=== PATIENT | female | born 1965 | race Caucasian/White ===

== ENCOUNTER 2021-10-07 01:45 | Observation (INO) | payer OTHER ==
[2021-10-07] VITALS (23 sets, daily range): BP systolic 116–190; BP diastolic 61–94
[~2021-10-07] VITALS: Ht 167.7 cm; Wt 116.9 kg
[2021-10-07] MEDS ORDERED: NITROGLYCERIN 2% OINT 1 GM UNIT DOSE PACKET TOP STA (02:02)
--- NOTE | 2021-10-07 02:13 | ED Chest Pain ---
General Stated Complaint: CP,JAW PAIN,LEFT ARM PAIN Source: patient History of Present Illness Date Seen by Provider: October 07, 2021 Time Seen by Provider: 01:52 Initial Comments PT ARRIVES VIA POV FROM HOME IN [place] C/O CHEST PAIN SINCE 99--WOKE HER FROM SLEEP PAIN IS IN CENTER OF CHEST AND RADIATES TO LEFT SHOULDER AND DOWN LEFT ARM, AND LEFT ARM FEELS A LITTLE TINGLY SYMPTOMS WORSE WITH EXERTION, BETTER AT REST STATES PAIN WAS 8-9/10 AT WORST, RATES PAIN 3-4/10 NOW C/O SHORTNESS OF BREATH NO SWEATS NO PALPITATIONS NO DIZZINESS OR SYNCOPE NO NAUSEA/VOMITING/DIARRHEA OR ABDOMINAL PAIN NO SWELLING IN LEGS /FEET OR PAIN IN CALVES STATES "I WAS FREAKING OUT" STATES FOR THE LAST 3-4 WEEKS SHE HAS BEEN GETTING VERY SHORT OF BREATH WITH ANY EXERTION AND HER JAWS HURT/ACHE WITH ANY EXERTION DENIES HISTORY OF SIMILAR OR ANY CARDIAC PROBLEMS NO FEVER OR COUGH OR RECENT ILLNESS PT IS INSULIN DEPENDENT DIABETIC, HAS HTN, HYPERLIPIDEMIA AND IS OBESE DENIES ANY MISSED DOSES OF MEDICATIONS PT ALSO STATES SHE HAS HAD COLON CANCER IN 2006 AND BREAST CANCER IN 2018. PT STATES SHE JUST MOVED HERE IN [place] FROM [place]--LIVING IN [place], WHILE HOUSE IS [place]ING [place]. HAS NOT ESTABLISHED WITH ANY LOCAL DR. HERE PT HAS NOT HAD COVID, FLU OR PNEUMONIA VACCINES STATES "I DON'T BELIEVE IN THOSE TESTS ( REFERRING TO COVID TESTS) --THOSE TESTS HAVE "NANOBOTS" IN THEM TOO" "THOSE TESTS HAVE KILLED HUNDREDS OF PEOPLE AND THOSE VACCINES HAVE KILLED THOUSANDS OF PEOPLE" Allergies and Home Medications Allergies Uncoded Allergies: MYCINS (Adverse Reaction, Unknown, 10/07/21) Patient Home Medication List Home Medication List Reviewed: Yes Aspirin (Aspirin EC) 81 Mg Tablet., 81 MG PO DAILY Prescribed by: ANITRA MENDOZA on 10/08/21 1002 Fenofibrate,Micronized (Fenofibrate) 134 Mg Capsule, 134 MG PO HS Prescribed by: ANITRA MENDOZA on 10/08/21 1002 Hydrochlorothiazide (Hydrochlorothiazide) 25 Mg Tablet, 25 MG PO HS, (Reported) Entered as Reported by: ENE LICONA on 10/07/21 0811 Last Action: Continued Insulin Glargine,Hum.rec.anlog (Lantus Solostar) 100 Unit/Ml (3 Ml) Insuln.pen, 56 UNITS SQ HS Prescribed by: ANITRA MENDOZA on 10/08/211001 Insulin Lispro (Humalog Kwikpen) 100 Unit/Ml Insuln.pen, 0 SQ TID Prescribed by: ANITRA MENDOZA on 10/08/211001 Isosorbide Mononitrate (Isosorbide Mononitrate ER) 30 Mg Tab.er.24h, 30 MG PO DAILY Prescribed by: ANTIRA MENDOZA on 10/08/211001 Lisinopril (Lisinopril) 20 Mg Tablet, 20 MG PO HS, (Reported) Entered as Reported by: ENE LICONA on 10/07/21 0811 Last Action: Continued Pantoprazole Sodium (Pantoprazole Sodium) 40 Mg Tablet.dr, 40 MG PO DAILY Prescribed by: ANITRA MENDOZA on 10/08/211001 Ticagrelor (Brilinta) 90 Mg Tablet, 90 MG PO BID Prescribed by: ANITRA MENDOZA on 10/08/211001 Review of Systems Review of Systems Constitutional: no symptoms reported EENTM: See HPI, Other (JAW PAIN ) Respiratory: See HPI, Shortness of Air, SOA With Exertion, SOA at Rest Cardiovascular: See HPI, Chest Pain; Denies Edema, Denies Lightheadedness, Denies Palpitations, Denies Syncope Gastrointestinal: No Symptoms Reported Genitourinary: No Symptoms Reported Musculoskeletal: see HPI Skin: no symptoms reported Psychiatric/Neurological: See HPI Endocrine: No Symptoms Reported Hematologic/Lymphatic: No Symptoms Reported Past Jrtzijc-Jpvyru-Gjngzs Hx Patient Social History Tobacco Use?: No Substance use?: No Alcohol Use?: No Past Medical History Surgeries: Yes Abdominal, Bowel Surgery, Breast, Gallbladder, Hysterectomy, Oophorectomy Respiratory: No Cardiac: Yes High Cholesterol, Hypertension Neurological: No : No RESOLUTE PROFESSIONAL History: Hysterectomy Genitourinary: No Gastrointestinal: Yes (COLON CANCER-S/P RESECTION; S/P CHOLECYSTECTOMY 2003) Gall Bladder Disease Musculoskeletal: No Endocrine: Yes Diabetes, Insulin dep HEENT: No Cancer: Yes Breast, Colon Did You Recieve Any Treatments: Yes What Type of Treatment Did You: Chemotherapy, Surgical Intervention COLON CANCER DX 2005--S/P COLON RESECTION AND 6 MONTHS OF CHEMO, NO RADIATION BREAST CANCER DX 2017--S/P BILATERAL MASTECTOMY. NO CHEMO OR RADIATION. Psychosocial: Yes Anxiety Integumentary: No Blood Disorders: No Physical Exam Vital Signs Vital Signs - First Documented 10/07/21 01:50 Temp 36.4 Pulse 80 Resp 20 B/P (MAP) 199/104 (135) Pulse Ox 97 Capillary Refill : Height, Weight, BMI Height: '" Weight: lbs. oz. kg; BMI Method: General Appearance: No Apparent Distress, WD/WN, Anxious (CRYING), Obese Neck: Full Range of Motion, Normal Inspection, Non Tender, Supple Respiratory: Chest Non Tender, Lungs Clear, Normal Breath Sounds, No Accessory Muscle Use, No Respiratory Distress Cardiovascular: Regular Rate, Rhythm, No Edema, No JVD, No Murmur, Normal Peripheral Pulses Gastrointestinal: Normal Bowel Sounds, No Organomegaly, Non Tender, Soft Extremity: Normal Capillary Refill, Normal Inspection, Normal Range of Motion, Non Tender, No Calf Tenderness, No Pedal Edema Neurologic/Psychiatric: Alert, Oriented x3, No Motor/Sensory Deficits, 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 as Tested Skin: Normal Color, Warm/Dry; No Rash Progress/Results/Core Measures Results/Orders Lab Results Laboratory Tests Test 10/07/21 02:00 10/07/21 02:07 10/07/21 02:20 Range/Units Beta-Hydroxybutyrate (Chem panel) 0.19 0.00-0.27 MMOL/L Influenza Type A (RT-PCR) Not Detected Not Detecte Influenza Type B (RT-PCR) Not Detected Not Detecte SARS-CoV-2 RNA (RT-PCR) Not Detected Not Detecte White Blood Count 8.7 4.3-11.0 10^3/uL Red Blood Count 5.01 3.80-5.11 10^6/uL Hemoglobin 14.9 11.5-16.0 g/dL Hematocrit 42 35-52 % Mean Corpuscular Volume 85 80-99 fL Mean Corpuscular Hemoglobin 30 25-34 pg Mean Corpuscular Hemoglobin Concent 35 32-36 g/dL Red Cell Distribution Width 13.7 10.0-14.5 % Platelet Count 269 130-400 10^3/uL Mean Platelet Volume 10.4 9.0-12.2 fL Immature Granulocyte % (Auto) 1 % Neutrophils (%) (Auto) 49 42-75 % Lymphocytes (%) (Auto) 40 12-44 % Monocytes (%) (Auto) 7 0-12 % Eosinophils (%) (Auto) 3 0-10 % Basophils (%) (Auto) 1 0-10 % Neutrophils # (Auto) 4.2 1.8-7.8 10^3/uL Lymphocytes # (Auto) 3.5 1.0-4.0 10^3/uL Monocytes # (Auto) 0.6 0.0-1.0 10^3/uL Eosinophils # (Auto) 0.2 0.0-0.3 10^3/uL Basophils # (Auto) 0.0 0.0-0.1 10^3/uL Immature Granulocyte # (Auto) 0.0 0.0-0.1 10^3/uL Prothrombin Time 11.8 L 12.2-14.7 SEC INR Comment 0.8 0.8-1.4 Activated Partial Thromboplast Time 27 24-35 SEC D-Dimer 0.33 0.00-0.49 UG/ML Sodium Level 139 135-145 MMOL/L Potassium Level 3.8 3.6-5.0 MMOL/L Chloride Level 101 98-107 MMOL/L Carbon Dioxide Level 21 21-32 MMOL/L Anion Gap 17 H 5-14 MMOL/L Blood Urea Nitrogen 15 7-18 MG/DL Creatinine 0.86 0.60-1.30 MG/DL Estimat Glomerular Filtration Rate 78 BUN/Creatinine Ratio 17 Glucose Level 261 H 70-105 MG/DL Calcium Level 10.1 8.5-10.1 MG/DL Corrected Calcium 9.9 8.5-10.1 MG/DL Magnesium Level 1.7 1.6-2.4 MG/DL Total Bilirubin 0.2 0.1-1.0 MG/DL Aspartate Amino Transf (AST/SGOT) 26 5-34 U/L Alanine Aminotransferase (ALT/SGPT) 40 0-55 U/L Alkaline Phosphatase 100 40-136 U/L Total Creatine Kinase 71 29-168 U/L Creatine Kinase MB 1.7 <6.6 NG/ML Myoglobin 29.5 10.0-92.0 NG/ML Troponin I < 0.028 <0.028 NG/ML B-Type Natriuretic Peptide 10.3 <100.0 PG/ML Total Protein 7.4 6.4-8.2 GM/DL Albumin 4.2 3.2-4.5 GM/DL Amylase Level 41 25-125 U/L Lipase 33 8-78 U/L Urine Opiates Screen NEGATIVE NEGATIVE Urine Oxycodone Screen NEGATIVE NEGATIVE Urine Methadone Screen NEGATIVE NEGATIVE Urine Propoxyphene Screen NEGATIVE NEGATIVE Urine Barbiturates Screen NEGATIVE NEGATIVE Ur Tricyclic Antidepressants Screen NEGATIVE NEGATIVE Urine Phencyclidine Screen NEGATIVE NEGATIVE Urine Amphetamines Screen NEGATIVE NEGATIVE Urine Methamphetamines Screen NEGATIVE NEGATIVE Urine Benzodiazepines Screen NEGATIVE NEGATIVE Urine Cocaine Screen NEGATIVE NEGATIVE Urine Cannabinoids Screen NEGATIVE NEGATIVE My Orders Orders - ZARIA KING DO Cbc With Automated Diff (10/07/21 01:52) Magnesium (10/07/21 01:52) Chest 1 View, Ap/Pa Only (10/07/21 01:52) Ekg Tracing (10/07/21 01:52) Comprehensive Metabolic Panel (10/07/21 01:52) Myoglobin Serum (10/07/21 01:52) Protime With Inr (10/07/21 01:52) Partial Thromboplastin Time (10/07/21 01:52) O2 (10/07/21 01:52) Monitor-Rhythm Ecg Trace Only (10/07/21 01:52) Ed Iv/Invasive Line Start (10/07/21 01:52) Creatine Kinase (10/07/21 01:52) Creatine Kinase Mb (10/07/21 01:52) Lipase (10/07/21 01:52) Amylase (10/07/21 01:52) Bnp Yessenia (10/07/21 01:52) Fibrin Degradation Products (10/07/21 01:52) Troponin I [place] (10/07/21 01:52) Ekg Tracing (10/07/21 01:54) Drug Screen Stat (Urine) (10/07/21 02:02) Nitroglycerin Ointment (Nitrobid Ointme (10/07/21 02:02) Aspirin Chewable Tablet (Baby Aspirin Ch (10/07/21 02:15) Covid 19 Inhouse Test (10/07/21 02:18) Influenza A And B By Pcr (10/07/21 02:18) Isolation Central Supply Req (10/07/21 02:18) Beta Hydroxybutyrate (10/07/21 02:59) Hemoglobin A1c (10/07/21 02:59) Hydralazine Injection (Apresoline Inject (10/07/21 03:15) Medications Given in ED Vital Signs/I&O 10/07/21 01:50 Temp 36.4 Pulse 80 Resp 20 B/P (MAP) 199/104 (135) Pulse Ox 97 Progress Progress Note : Progress Note INITIAL BP'S 200'S/100'S GIVEN ASPIRIN AND NITROPASTE BP DOWN WITH NITROPASTE AND CHEST PAIN EASED. UNEVENTFUL ER STAY Initial ECG Impression Date: October 07, 2021 Initial ECG Impression Time: 01:57 Initial ECG Rate: 78 Initial ECG Rhythm: Normal Sinus Initial ECG Impression: Normal Initial ECG Comparisson: No Previous ECG Available Diagnostic Imaging Comments CXR--NO ACUTE PROCESS, PENDING RADIOLOGIST REVIEW Reviewed: Reviewed by Me Departure Communication (Admissions) 0306--SPOKE WITH DR. MENDOZA, HOSPITALIST, ACCEPTS PT FOR ADMIT. WILL CONSULT CARDIOLOGY IN AM Impression Primary Impression: Chest pain Additional Impressions: Uncontrolled hypertension Diabetes mellitus, insulin dependent (IDDM), uncontrolled Disposition: ADMITTED INPATIENT Condition: Improved Admissions Decision to Admit Reason: Admit from ER (General) Decision to Admit/Date: October 07, 2021 Time/Decision to Admit Time: 03:10 Departure-Patient Inst. Referrals: NO,LOCAL PHYSICIAN (PCP/Family) Primary Care Physician Scripts Pantoprazole Sodium (Pantoprazole Sodium) 40 Mg Tablet. 40 MG PO DAILY, #30 TAB Prov: ANITRA MENDOZA MD 10/08/21 Aspirin (Aspirin EC) 81 Mg Tablet. 81 MG PO DAILY, #30 TAB Prov: ANITRA MENDOZA MD 10/08/21 Isosorbide Mononitrate (Isosorbide Mononitrate ER) 30 Mg Tab.er.24h 30 MG PO DAILY, #30 TAB Prov: ANITRA MENDOZA MD 10/08/21 Fenofibrate,Micronized (Fenofibrate) 134 Mg Capsule 134 MG PO HS, #30 CAP Prov: ANITRA MENDOZA MD 10/08/21 Ticagrelor (Brilinta) 90 Mg Tablet 90 MG PO BID, #60 TAB Prov: ANITRA MENDOZA MD 10/08/21 Insulin Glargine,Hum.rec.anlog (Lantus Solostar) 100 Unit/Ml (3 Ml) Insuln.pen 56 UNITS SQ HS, #1 EA Prov: ANITRA MENDOZA MD 10/08/21 Insulin Lispro (Humalog Kwikpen) 100 Unit/Ml Insuln.pen 0 SQ TID, #1 EA 15-50 UNITS TID--HOME SLIDING SCALE Prov: ANITRA MENDOZA MD 10/08/21 ZARIA KING DO October 07, 2021 02:13
[2021-10-07] MEDS ORDERED: ASPIRIN 81 MG CHEW (CHILDREN'S ASA) PO ONE (02:15)
[2021-10-07 02:18] LABS: BASOPHILS % (AUTO) 1 % (0-10); EOSINOPHILS # (AUTO) 0.2 10^3/uL (0.0-0.3); EOSINOPHILS % (AUTO) 3 % (0-10); HEMATOCRIT 42 % (35-52); HEMOGLOBIN 14.9 g/dL (11.5-16.0); LYMPHOCYTES # (AUTO) 3.5 10^3/uL (1.0-4.0); LYMPHOCYTES % (AUTO) 40 % (12-44); MEAN CORPUSCULAR HEMOGLOBIN 30 pg (25-34); MEAN CORPUSCULAR HGB CONC 35 g/dL (32-36); MEAN CORPUSCULAR VOLUME 85 fL (80-99); MEAN PLATELET VOLUME 10.4 fL (9.0-12.2); MONOCYTES # (AUTO) 0.6 10^3/uL (0.0-1.0); MONOCYTES % (AUTO) 7 % (0-12); NEUTROPHILS # (AUTO) 4.2 10^3/uL (1.8-7.8); NEUTROPHILS % (AUTO) 49 % (42-75); PLATELET COUNT 269 10^3/uL (130-400); WHITE BLOOD COUNT 8.7 10^3/uL (4.3-11.0)
[2021-10-07 02:29] LABS: INR 0.8 (0.8-1.4); PROTHROMBIN TIME PATIENT 11.8 SEC (12.2-14.7)
[2021-10-07 02:30] LABS: ALBUMIN 4.2 GM/DL (3.2-4.5); POTASSIUM 3.8 MMOL/L (3.6-5.0)
[2021-10-07 02:31] LABS: CALCIUM 10.1 MG/DL (8.5-10.1)
[2021-10-07 02:33] LABS: TOTAL PROTEIN 7.4 GM/DL (6.4-8.2)
[2021-10-07 02:34] LABS: BILIRUBIN,TOTAL 0.2 MG/DL (0.1-1.0)
[2021-10-07 02:36] LABS: CREATININE SERUM 0.86 MG/DL (0.60-1.30)
[2021-10-07 02:39] LABS: MAGNESIUM 1.7 MG/DL (1.6-2.4)
[2021-10-07 02:47] LABS: CREATINE KINASE MB 1.7 NG/ML (<6.6)
[2021-10-07 02:49] LABS: AMPHETAMINE SCREEN, URINE NEGATIVE (NEGATIVE); BARBITURATE SCREEN URINE NEGATIVE (NEGATIVE); BENZODIAZEPINES SCREEN URINE NEGATIVE (NEGATIVE); CANNABINOID SCREEN, URINE NEGATIVE (NEGATIVE); COCAINE SCREEN URINE NEGATIVE (NEGATIVE); METHADONE STAT NEGATIVE (NEGATIVE); OPIATE SCREEN URINE NEGATIVE (NEGATIVE); OXYCODONE STAT NEGATIVE (NEGATIVE); PROPOXYPHENE STAT NEGATIVE (NEGATIVE); TRICYCLIC ANTIDEPRESSANTS SCRE NEGATIVE (NEGATIVE)
[2021-10-07] MEDS ORDERED: hydrALAZINE (APESOLINE) 20 MG/ML VIAL IV ONE (03:15)
[2021-10-07] MEDS ORDERED: ONDANSETRON 4 MG/2 ML (SDV) Z0FRAN IVP PRN (05:15)
[2021-10-07] MEDS ORDERED: morphine INJ 4 MG/ML 1 ML (VIAL/SYRINGE) IV PRN (05:15)
[2021-10-07] MEDS ORDERED: NITROGLYCERIN 0.4 MG SL TABS BTL 25'S SL PRN (05:15)
[2021-10-07 06:29] LABS: BASOPHILS % (AUTO) 1 % (0-10); EOSINOPHILS # (AUTO) 0.1 10^3/uL (0.0-0.3); EOSINOPHILS % (AUTO) 2 % (0-10); HEMATOCRIT 41 % (35-52); LYMPHOCYTES # (AUTO) 2.2 10^3/uL (1.0-4.0); LYMPHOCYTES % (AUTO) 32 % (12-44); MEAN CORPUSCULAR HEMOGLOBIN 30 pg (25-34); MEAN CORPUSCULAR HGB CONC 34 g/dL (32-36); MEAN CORPUSCULAR VOLUME 87 fL (80-99); MEAN PLATELET VOLUME 10.4 fL (9.0-12.2); MONOCYTES # (AUTO) 0.5 10^3/uL (0.0-1.0); MONOCYTES % (AUTO) 7 % (0-12); NEUTROPHILS % (AUTO) 59 % (42-75); PLATELET COUNT 249 10^3/uL (130-400); WHITE BLOOD COUNT 6.8 10^3/uL (4.3-11.0)
[2021-10-07] MEDS: inSUlin ASPART (NovoLOG) 1 UNIT/0.01 ML (CHARGE PER UNIT) SC SCH ×4 (06:41→22:17)
[2021-10-07] MEDS: CATHETER FLUSH 10 ML SYR IVP SCH ×2 (06:46→14:07)
--- NOTE | 2021-10-07 06:47 | Diagnostic Imaging Report ---
EXAMINATION: Chest radiograph, portable AP view. DATE: 10/07/2021 2:19 AM INDICATION: 56-year-old female, chest pain. COMPARISON: None. FINDINGS: Heart size and mediastinal contours are unremarkable. There is no identified pneumothorax. There is no large pleural effusion. There is no identified focal airspace consolidation. IMPRESSION: No identified acute cardiopulmonary abnormality. Dictated by: Dictated on workstation # [id number]
[2021-10-07 06:50] LABS: BUN/CREATININE RATIO 20; CALCIUM 9.8 MG/DL (8.5-10.1); CARBON DIOXIDE 21 MMOL/L (21-32); CHLORIDE 103 MMOL/L (98-107); CHOLESTEROL 234 MG/DL (< 200); CREATININE SERUM 0.81 MG/DL (0.60-1.30); GFR ESTIMATED 84; GLUCOSE 310 MG/DL (70-105); HDL CHOLESTEROL 29 MG/DL (40-60); POTASSIUM 4.1 MMOL/L (3.6-5.0); SODIUM 140 MMOL/L (135-145); TRIGLYCERIDES 682 MG/DL (<150)
[2021-10-07] MEDS: ASPIRIN E.C. 81 MG (ECOTRIN) TAB PO SCH (08:06)
[2021-10-07] MEDS: NITROGLYCERIN 2% OINT 1 GM UNIT DOSE PACKET TOP SCH ×3 (08:06→22:18)
[2021-10-07] MEDS ORDERED: LISI20TA26 PO (08:11)
[2021-10-07] MEDS ORDERED: INSU100I10 SQ (08:11)
[2021-10-07] MEDS ORDERED: INSU100I23 SQ (08:11)
[2021-10-07] MEDS ORDERED: HYDR25TA4 PO (08:11)
--- NOTE | 2021-10-07 10:18 | History & Physical-Hospitalist ---
History of Present Illness HPI/Chief Complaint Patient is a 56-year-old female with a past medical history of insulin-dependent diabetes type 2, hypertension who presented to the emergency department due to chest pain. She states it woke her up from sleep. It was in the center to the left side of her chest. It radiated to her shoulder and down her left arm. She describes this is painful and tingly. She reports she has been having intermittent episodes of chest pain and jaw pain with exertion over the past couple weeks. She has a significant family history of cardiac disease. Her mother had her first heart attack in her 50s. Her sister had multiple heart attacks and is secondary to cardiac disease. She complains of shortness of breath but denies nausea vomiting or palpitations. Source: patient Date Seen 10/07/21 Time Seen by a Provider: 08:40 Attending Physician No,Local Physician PCP Admitting Physician: Anitra Bailon MD Attending Physician: Anitra Bailon MD Referring Physician Date of Admission October 07, 2021 at 03:10 Home Medications & Allergies Home Medications Reviewed patient Home Medication Reconciliation performed by pharmacy medication reconciliations orthotic finish grinding technician and/or nursing. Patients Allergies have been reviewed. Allergies Allergies Uncoded Allergies MYCINS ( Adverse Reaction, Unknown, 10/07/21) Past Jumlgjm-Gggeuw-Yroltn Hx Patient Social History Marrital Status: Tobacco Use?: No Smoking Status: Never a Smoker Use of E-Cig and/or Vaping dev: No Substance use?: No Alcohol Use?: No Pt feels they are or have been: No Current Status status: No status: No Advance Directives: No Communicates: Verbally Primary Language: Lebanese Preferred Spoken Language: Lebanese Is interpretation needed?: No Past Medical History Surgeries: Abdominal, Bowel Surgery, Breast, Gallbladder, Hysterectomy, Oophorectomy High Cholesterol, Hypertension MARKETING SUPPORT SPECIALIST History: Hysterectomy Gall Bladder Disease Diabetes, Insulin dep Breast, Colon Did You Recieve Any Treatments: Yes What Type of Treatment Did You: Chemotherapy, Surgical Intervention COLON CANCER DX 2006--S/P COLON RESECTION AND 6 MONTHS OF CHEMO, NO RADIATION BREAST CANCER DX 2018--S/P BILATERAL MASTECTOMY. NO CHEMO OR RADIATION. Anxiety Blood Disorders: No Family Medical History Reviewed Nursing Family Hx No Pertinent Family Hx Review of Systems Constitutional: No chills, No diaphoresis, No fever EENTM: no symptoms reported Respiratory: dyspnea on exertion, short of breath Cardiovascular: chest pain; No edema, No Hx of Intervention, No palpitations, No syncope Gastrointestinal: No abdominal pain, No constipation, No diarrhea, No nausea, No vomiting Genitourinary: no symptoms reported Musculoskeletal: no symptoms reported Skin: no symptoms reported Psychiatric/Neurological: No Symptoms Reported Physical Exam Physical Exam Vital Signs Vital Signs - First Documented 10/07/21 10/07/21 01:50 04:40 Temp 36.4 Pulse 80 Resp 20 B/P (MAP) 199/104 (135) Pulse Ox 97 O2 Delivery Room Air Capillary Refill : Less Than 3 Seconds Height, Weight, BMI Height: '" Weight: lbs. oz. kg; 41.35 BMI Method: General Appearance: No Apparent Distress, WD/WN, Obese HEENT: PERRL/EOMI, Moist Mucous Membranes; No Scleral Icterus (L), No Scleral Icterus (R) Neck: Normal Inspection, Supple Respiratory: Lungs Clear, No Accessory Muscle Use, No Respiratory Distress Cardiovascular: Regular Rate, Rhythm, No JVD, No Murmur Gastrointestinal: Normal Bowel Sounds, Non Tender, Soft Extremity: Normal Capillary Refill, No Calf Tenderness, No Pedal Edema Neurologic/Psychiatric: Alert, Oriented x3, Normal Mood/Affect; No Aphasia, No Facial Droop Skin: Normal Color, Warm/Dry Results Results/Procedures Labs Laboratory Tests 10/07/21 02:07 10/07/21 06:10 Patient resulted labs reviewed. Imaging: Reviewed Imaging Report Imaging [facility] [place] NAME: FRANKIMANISHDEIDRA L [facility] REC#: [id number] PT STATUS: ADM [place] : 1965 PHYSICIAN: ZARIA KING DO ADMIT DATE: 10/07/21/[facility] Signed Date of Exam:10/07/21 CHEST 1 VIEW, AP/PA ONLY EXAMINATION: Chest radiograph, portable AP view. DATE: 10/07/2021 2:19 AM INDICATION: 56-year-old female, chest pain. COMPARISON: None. FINDINGS: Heart size and mediastinal contours are unremarkable. There is no identified pneumothorax. There is no large pleural effusion. There is no identified focal airspace consolidation. IMPRESSION: No identified acute cardiopulmonary abnormality. Dictated by: Dictated on workstation # [id number] Dict: 10/07/21 0645 Trans: 10/07/21 0737 [facility] [id number] Interpreted by: CARLEY ROSE MD Electronically signed by: CARLEY ROSE MD 10/07/21 0737 Assessment/Plan Admission Diagnosis NSTEMI Admission Status: Observation Assessment and Plan NSTEMI Troponin negative on arrival bit trended up, third pending Symptoms concerning for cardiac etiology Dr Aranda consulted, appreciate recs Monitor on Telemetry ASA and Nitro given in ER IDDMII Continue home insulin Fasting blood sugar very elevated this AM HTN Resume home meds, BP well controlled HLD Hypertriglyceridemia Fenofibrate already added by Dr Aranda Clinical Quality Measures AMI/AHF: ASA po Prior to arrival: ANITRA Botello MD October 07, 2021 10:18
[2021-10-07] MEDS ORDERED: VERAPAMIL 5 MG/2 ML (CALAN) VIAL IV ONE (10:25)
[2021-10-07] MEDS ORDERED: NS IV 1000 ML 1,000 ML ONE (10:26)
[2021-10-07] MEDS ORDERED: HEParin (CATH LAB) 2,000 ML IV ONE (10:26)
[2021-10-07] MEDS ORDERED: fentaNYL INJ 100 MCG/2 ML AMP ONE (10:26)
[2021-10-07] MEDS ORDERED: HEParin 1000 UNIT/ML (10ML VIAL) FOR BOLUS ONE (10:26)
[2021-10-07] MEDS ORDERED: LIDOCAINE 1% INJ 20 ML VIAL ONE (10:26)
[2021-10-07] MEDS ORDERED: NITRO DRIP 25000 MCG/D5W 250 ML IV ONE (10:26)
[2021-10-07] MEDS ORDERED: MIDAZOLAM 5 MG/5 ML (VERSED) VIAL ONE (10:26)
--- NOTE | 2021-10-07 10:32 | Conscious Sedation/ASA ---
Conscious Sedation Pre-Proced Time 10:32 ASA Score 3 For ASA 3 and 4: Consider anesthesia and medical clearance. Also, for patients with a history of failed moderate sedation consider anesthesia. Airway Lungs Heart ASA score ASA 1: a normal healthy patient ASA 2: a patient with a mild systemic disease (mid diabetes, controlled hypertension, obesity x ASA 3: a patient with a severe systemic disease that limits activity (angina, COPD, prior Myocardial infarction) ASA 4: a patient with an incapacitating disease that is a constant threat to life (CHF, renal failure) ASA 5: a moribund patient not expected to survive 24 hrs. (ruptured aneurysm) ASA 6: a declared brain- patient whose organs are being harvested. For emergent operations, add the letter E after the classification Mallampati Classification Grade 3 Sedation Plan Analgesia, Amnesia, Plan communicated to team members, Discussed options with patient/fam, Discussed risks with patient/fam The patient is an appropriate candidate to undergo the planned procedure, sedation, and anesthesia. The patient immediately re-assessed prior to indication. JESSICA MESSER MD October 07, 2021 10:32
--- NOTE | 2021-10-07 10:32 | Consultation-Cardiology ---
HPI-Cardiology Cardiology Consultation Date of Consultation 10/07/21 Date of Admission Time Seen by Provider: 10:27 Indication: Chest pain HPI 56-year-old lady with history of hypertension, diabetes mellitus, strong family history of heart disease. Started to have chest pain described as sharp in nature on the left side radiating to the jaw associated with jaw pain. Came into the emergency room and responded to nitroglycerin. Had mild elevation in troponin. Reporting increasing chest pain and jaw pain with exercising and walking over the past few weeks. No previous cardiac work-up. On my evaluation she was laying down comfortably in bed, denied any active chest pain, has been having dyspnea, had episode of dyspnea with the chest pain. Has been having worsening dyspnea on exertion recently. Home Medications & Allergies Allergies: Uncoded Allergies: MYCINS (Adverse Reaction, Unknown, 10/07/21) Home Medication List Reviewed: Yes [id number]-[id number] Hx Patient Social History Marital Status: Employed/Student: employed Smoking Status: Never a Smoker Have you traveled recently?: No Alcohol Use?: No Past Medical History Discussed below Family Medical History Significant Family History: No Pertinent Family Hx Family Medical Hx Strong family history of heart disease with mother and sister had multiple stents in both Review of Systems-General Review of Systems Constitutional: No chills, No diaphoresis, No fever EENTM: no symptoms reported Respiratory: see HPI; No cough; dyspnea on exertion; No hemoptysis, No orthopne a, No phlegm; short of breath; No stridor, No wheezing, No other Cardiovascular: see HPI, chest pain; No edema, No Hx of Intervention, No palpitations, No syncope, No vascular heart diseas, No other Gastrointestinal: see HPI; No abdominal pain, No constipation, No diarrhea, No nausea, No vomiting Genitourinary: no symptoms reported, see HPI Musculoskeletal: no symptoms reported, see HPI Skin: no symptoms reported, see HPI Psychiatric/Neurological: No Symptoms Reported, See HPI Reviewed Test Results Reviewed Test Results Lab Laboratory Tests Test 10/07/21 02:00 10/07/21 02:07 10/07/21 02:20 10/07/21 06:10 Range/Units Beta-Hydroxybutyrate (Chem panel) 0.19 0.00-0.27 MMOL/L Influenza Type A (RT-PCR) Not Detected Not Detecte Influenza Type B (RT-PCR) Not Detected Not Detecte SARS-CoV-2 RNA (RT-PCR) Not Detected Not Detecte White Blood Count 8.7 6.8 4.3-11.0 10^3/uL Red Blood Count 5.01 4.73 3.80-5.11 10^6/uL Hemoglobin 14.9 14.0 11.5-16.0 g/dL Hematocrit 42 41 35-52 % Mean Corpuscular Volume 85 87 80-99 fL Mean Corpuscular Hemoglobin 30 30 25-34 pg Mean Corpuscular Hemoglobin Concent 35 34 32-36 g/dL Red Cell Distribution Width 13.7 13.7 10.0-14.5 % Platelet Count 269 249 130-400 10^3/uL Mean Platelet Volume 10.4 10.4 9.0-12.2 fL Immature Granulocyte % (Auto) 1 0 % Neutrophils (%) (Auto) 49 59 42-75 % Lymphocytes (%) (Auto) 40 32 12-44 % Monocytes (%) (Auto) 7 7 0-12 % Eosinophils (%) (Auto) 3 2 0-10 % Basophils (%) (Auto) 1 1 0-10 % Neutrophils # (Auto) 4.2 4.0 1.8-7.8 10^3/uL Lymphocytes # (Auto) 3.5 2.2 1.0-4.0 10^3/uL Monocytes # (Auto) 0.6 0.5 0.0-1.0 10^3/uL Eosinophils # (Auto) 0.2 0.1 0.0-0.3 10^3/uL Basophils # (Auto) 0.0 0.0 0.0-0.1 10^3/uL Immature Granulocyte # (Auto) 0.0 0.0 0.0-0.1 10^3/uL Prothrombin Time 11.8 L 12.2-14.7 SEC INR Comment 0.8 0.8-1.4 Activated Partial Thromboplast Time 27 24-35 SEC D-Dimer 0.33 0.00-0.49 UG/ML Sodium Level 139 140 135-145 MMOL/L Potassium Level 3.8 4.1 3.6-5.0 MMOL/L Chloride Level 101 103 98-107 MMOL/L Carbon Dioxide Level 21 21 21-32 MMOL/L Anion Gap 17 H 16 H 5-14 MMOL/L Blood Urea Nitrogen 15 16 7-18 MG/DL Creatinine 0.86 0.81 0.60-1.30 MG/DL Estimat Glomerular Filtration Rate 78 84 BUN/Creatinine Ratio 17 20 Glucose Level 261 H 310 H 70-105 MG/DL Calcium Level 10.1 9.8 8.5-10.1 MG/DL Corrected Calcium 9.9 8.5-10.1 MG/DL Magnesium Level 1.7 1.6-2.4 MG/DL Total Bilirubin 0.2 0.1-1.0 MG/DL Aspartate Amino Transf (AST/SGOT) 26 5-34 U/L Alanine Aminotransferase (ALT/SGPT) 40 0-55 U/L Alkaline Phosphatase 100 40-136 U/L Total Creatine Kinase 71 29-168 U/L Creatine Kinase MB 1.7 <6.6 NG/ML Myoglobin 29.5 10.0-92.0 NG/ML Troponin I < 0.028 0.064 H <0.028 NG/ML B-Type Natriuretic Peptide 10.3 <100.0 PG/ML Total Protein 7.4 6.4-8.2 GM/DL Albumin 4.2 3.2-4.5 GM/DL Amylase Level 41 25-125 U/L Lipase 33 8-78 U/L Urine Opiates Screen NEGATIVE NEGATIVE Urine Oxycodone Screen NEGATIVE NEGATIVE Urine Methadone Screen NEGATIVE NEGATIVE Urine Propoxyphene Screen NEGATIVE NEGATIVE Urine Barbiturates Screen NEGATIVE NEGATIVE Ur Tricyclic Antidepressants Screen NEGATIVE NEGATIVE Urine Phencyclidine Screen NEGATIVE NEGATIVE Urine Amphetamines Screen NEGATIVE NEGATIVE Urine Methamphetamines Screen NEGATIVE NEGATIVE Urine Benzodiazepines Screen NEGATIVE NEGATIVE Urine Cocaine Screen NEGATIVE NEGATIVE Urine Cannabinoids Screen NEGATIVE NEGATIVE Triglycerides Level 682 H <150 MG/DL Cholesterol Level 234 H < 200 MG/DL LDL Cholesterol Direct 111 1-129 MG/DL VLDL Cholesterol 5-40 MG/DL HDL Cholesterol 29 L 40-60 MG/DL Test 10/07/21 06:32 10/07/21 08:11 Range/Units Glucometer 293 H 70-110 MG/DL Troponin I 0.073 H <0.028 NG/ML Physical Exam Physical Exam Vital Signs Vital Signs - First Documented 10/07/21 10/07/21 01:50 04:40 Temp 36.4 Pulse 80 Resp 20 B/P (MAP) 199/104 (135) Pulse Ox 97 O2 Delivery Room Air Capillary Refill : Less Than 3 Seconds Height, Weight, BMI Height: '" Weight: lbs. oz. kg; 41.35 BMI Method: General Appearance: No Apparent Distress, WD/WN, Obese HEENT: PERRL/EOMI, Moist Mucous Membranes; No Scleral Icterus (L), No Scleral Icterus (R) Neck: Normal Inspection, Supple Respiratory: Lungs Clear, No Accessory Muscle Use, No Respiratory Distress Cardiovascular: Regular Rate, Rhythm, No JVD, No Murmur Gastrointestinal: Normal Bowel Sounds, Non Tender, Soft Extremity: Normal Capillary Refill, No Calf Tenderness, No Pedal Edema Neurologic/Psychiatric: Alert, Oriented x3, Normal Mood/Affect; No Aphasia, No Facial Droop Skin: Normal Color, Warm/Dry A/P-Cardiology Admission Diagnosis Non-ST elevation myocardial infarction Coronary artery disease Hypertension Hyperlipidemia Diabetes mellitus Assessment/Plan Chest pain, non-ST elevation myocardial infarction. Had mild elevation in troponin. Discussed the management plan recommended cardiac catheterization possible PTCA. Procedure was explained in length. Hypertension, maintained on lisinopril and hydrochlorothiazide. I will restart medications and monitor blood pressure Hyperlipidemia, lipid profile showed triglycerides 682, total cholesterol 234 and LDL 111. Patient reported that she has been on fish oil. I will add fenofibrate and evaluate tolerance and response Diabetes mellitus, maintained on insulin Obesity, BMI 41, we discussed weight loss and exercise History of breast cancer with bilateral mastectomy, did not require radiation or chemotherapy History of colon cancer, history of partial sigmoidectomy required chemotherapy and has been in remission Strong family history of heart disease Witnessed multiple episodes of sleep apnea while asleep by her , high suspicion of obstructive sleep apnea, consider sleep study as an outpatient Clinical Quality Measures AMI/AHF: ASA po Prior to arrival: JESSICA Mcmahan MD October 07, 2021 10:32
[2021-10-07] MEDS: NS IV 1000 ML 1,000 ML IV SCH ×2 (11:15→14:25)
[2021-10-07] MEDS ORDERED: TICAGRELOR 90 MG TABLET (BRILINTA) PO ONE (11:41)
[2021-10-07] MEDS ORDERED: ASPIRIN 325 MG (5 GR) TABLET ONE (11:41)
--- NOTE | 2021-10-07 11:49 | Cardiac Cath Report ---
Cardiac Cath Report Physician (s)/Flame Burner (s) Physician JESSICA MESSER MD Pre-Procedure Diagnosis Pre-Procedure Diagnosis: Non-ST elevation myocardial infarction Post-Procedure Note Procedure Start Date: October 07, 2021 Name of Procedure: Left heart catheterization Stenting to the LAD Findings/Procedure Note PROCEDURE NOTE: 56-year-old lady with history of hypertension, hyperlipidemia, diabetes mellitus, admitted with non-ST elevation myocardial infarction recommended cardiac catheterization possible PTCA. After explaining the procedure to the patient, all pros and cons were explained, all questions were answered. The patient signed the consent and then she was placed on the cardiac catheterization laboratory. Groin was prepped SL fashion local anesthesia was used. Sheath placed in the right radial artery, Bishop catheter was advanced to the left ventricular cavity, pressure was measured, left ventriculogram was done, pullback LV to aorta was done. Engage the right coronary artery and angiogram was done, I had difficulty engaging the left coronary system, I did 2 angiogram and noticed severe stenosis. I decided to proceed with the EBU 3.5 guide and continue with the angiogram. Patient received total of 6000 units of heparin, EBU guide was used and angiogram was performed to the left system. Patient had multiple lesions in the LAD, proximally there is 95% stenosis, midportion has 40 to 50% stenosis distally there is 70% stenosis. I started with predilatation with the 3 x 15 balloon to the proximal lesion then proceeded with deployment of dayanna point stent 2.5 x 15 mm to the distal lesion expanded to 2.7 mm with excellent results. Then to the proximal lesion I used dayanna point stent 3 x 18 mm expanded to 3.5 mm with excellent results. The mid LAD lesion was treated conservatively. At the end of the procedure the sheath was removed. Vascular band was used FINDINGS: Hemodynamics LV 135/14, end-diastolic pressure of 14 Aorta 111/66 mean of 83 ANATOMY: Left Main is free of obstructive disease Left Anterior Descending has severe stenosis proximally with successful balloon angioplasty and stenting using dayanna point stent 3 x 18 mm expanded to 3.5 mm with excellent results. Mid LAD has moderate stenosis that will be treated conservative, the distal LAD has 70% stenosis with successful stenting using dayanna point stent 2.5 x 15 mm expanded to 2.7 mm with excellent results. Left Circumflex is moderate in size with mild disease nonobstructive disease Right Coronary Artery is dominant artery with mild to moderate disease nonobstructive disease LV Gram was done showing normal left ventricular size and systolic function ejection fraction 60% CONCLUSION: 1. Multisegment stenosis in the LAD with severe stenosis proximally successful deployment of dayanna point stent 3 x 18 mm expanded to 3.5 mm with excellent results, distal LAD has severe stenosis successful deployment of 2.5 x 15 mm with expansion to 2.7 mm. Mid LAD has moderate lesion which will be treated conservatively 2. Dominant right coronary artery with mild to moderate disease nonobstructive disease, mild disease in the LAD 3. Normal left ventricular size and systolic function estimate ejection fraction 60% DISCUSSION AND RECOMMENDATION: Patient was started on aspirin and Brilinta, adding fenofibrate and restart lisinopril and hydrochlorothiazide and monitor tolerance and response Anesthesia Type: Conscious Sedation Estimated blood loss (mL): 25 ml Contrast Amount: 117 ml Total Radiation Dose: 1288 mGy Post-Procedure Diagnosis Post-operative diagnosis: Non-ST elevation myocardial infarction Coronary artery disease Hypertension Hyperlipidemia JESSICA MESSER MD October 07, 2021 11:49
[2021-10-07] MEDS: EMPAGLIFLOZIN 10 MG TABLET (JARDIANCE) PO SCH (15:01)
[2021-10-07] MEDS ORDERED: meTOprolol 5 MG/5 ML (LOPRESSOR) VIAL ONE (18:24)
[2021-10-07] MEDS ORDERED: lisINopril 20 MG (PRINIVIL) TABLET ONE (18:26)
[2021-10-07] MEDS ORDERED: meTOprolol 5 MG/5 ML (LOPRESSOR) VIAL IV ONE (18:30)
[2021-10-07] MEDS ORDERED: FENOFIBRATE 134 MG (LOFIBRA) CAPSULE PO SCH (21:00)
[2021-10-07] MEDS ORDERED: lisINopril 20 MG (PRINIVIL) TABLET PO SCH (21:00)
[2021-10-07] MEDS: TICAGRELOR 90 MG TABLET (BRILINTA) PO SCH (21:49)
[2021-10-07] MEDS: ISOSORBIDE MONONITRATE 30 MG (IMDUR) TAB PO SCH (21:49)
[2021-10-08] VITALS: BP 136/63
[2021-10-08] MEDS: NITROGLYCERIN 2% OINT 1 GM UNIT DOSE PACKET TOP SCH ×2 (02:53→08:50)
[2021-10-08] MEDS: NS IV 1000 ML 1,000 ML IV SCH (02:56)
[2021-10-08] MEDS: CATHETER FLUSH 10 ML SYR IVP SCH ×2 (02:57→05:43)
[2021-10-08 03:55] VITALS: BP 114/56
[2021-10-08] MEDS: inSUlin ASPART (NovoLOG) 1 UNIT/0.01 ML (CHARGE PER UNIT) SC SCH (05:42)
--- NOTE | 2021-10-08 07:00 | Discharge Inst-Post CATH ---
Discharge Inst-CATH/EP Problems Reviewed?: Yes Post Cardiac Cath/EP D/C Inst Follow Up/Plan Appointment with Dr Aranda in 2 weeks <b>CARDIAC CATH/EP PROCEDURE DISCHARGE INSTRUCTIONS</b> ACTIVITY * Go Home directly and rest. * Limit activity of the leg (or wrist if it was used) for 7 days including aerobics, swimming, jogging, bicycling, etc. * Restrict stair-climbing for 7 days if possible, if not, climb up with your non-cath leg, then bring together on the same step. * Avoid lifting, pushing, pulling or excessive movement of the affected extremity for 7 days. * Customary sexual activity may be resumed after 2 days-use caution not to use a position that strains or causes pain to the affected extremity. * No driving for 24 hours. * NO SMOKING. * Avoid straining for bowel movements for 7 days. * Gentle walking on level ground is allowed. * Returning to work will depend on the type of procedure and the results. Your doctor will discuss this with you. CALL YOUR DOCTOR FOR ANY OF THE FOLLOWING: *If bleeding from the puncture site occurs- Apply gentle pressure to site with clean cloth and call your doctor or EMS. * If a knot or lump forms under the skin, increases in size, or causes pain. * If bruising appears to be worsening or moving further down your leg instead of disappearing. * Temperature above 101 F. CARE OF YOUR GROIN INCISION; * Bruising or purple discoloration of the skin near the puncture site is common. * You may shower only, no bathtub bathing for 5 days. Be careful to avoid slipping as your leg may feel stiff. * If a closure device was used on your femoral artery, please see the attached guide regarding care of the device and your leg. * Leave dressing on FOR 24 hours. CARE OF YOUR WRIST INCISION; * Bruising or purple discoloration of the skin near the puncture site is common. * You may shower. * DO NOT submerge wrist. * Leave dressing on FOR 24 hours. JESSICA ARANDA MD October 08, 2021 07:00
[2021-10-08 08:00] VITALS: BP 138/74
[2021-10-08] MEDS: ISOSORBIDE MONONITRATE 30 MG (IMDUR) TAB PO SCH (08:42)
[2021-10-08] MEDS: ASPIRIN E.C. 81 MG (ECOTRIN) TAB PO SCH (08:42)
[2021-10-08] MEDS: TICAGRELOR 90 MG TABLET (BRILINTA) PO SCH (08:42)
[2021-10-08] MEDS: EMPAGLIFLOZIN 10 MG TABLET (JARDIANCE) PO SCH (08:45)
[2021-10-08] MEDS ORDERED: PANTOPRAZOLE 40 MG (PROTONIX) TAB PO SCH (09:00)
--- NOTE | 2021-10-08 09:38 | Cardiology Progress Note ---
Subjective Date Seen by Provider: October 08, 2021 Time Seen by Provider: 09:36 Subjective/Events-last exam Patient was seen at bedside, laying down comfortably, feeling better. Denied any active chest pain. Had an episode of chest pain last night resolved with sublingual nitroglycerin. Review of Systems General: No Chills, No Night Sweats, No Fatigue, No Malaise, No Appetite, No Other HEENT: No Head Aches, No Visual Changes, No Eye Pain, No Ear Pain, No Dysphasia, No Sinus Congestion, No Post Nasal Drip, No Sore Throat, No Other Pulmonary: No Dyspnea, No Cough, No Pleuritic Chest Pain, No Other Cardiovascular: No: Chest Pain, Palpitations, Orthopnea, Paroxysmal Noc. Dyspnea, Edema, Lt Headedness, Other Objective-Cardiology Exam Last Set of Vital Signs Vital Signs 10/08/21 08:00 Temp 36.4 Pulse 62 Resp 16 B/P (MAP) 138/74 (95) Pulse Ox 95 O2 Delivery Room Air I&O Intake and Output 10/08/21 00:00 Intake Total 1280 ml Output Total 0 ml Balance 1280 ml Intake Oral 480 ml IV Total 800 ml Output Urine Total 0 ml # Voids 4 Daily Weight Change No General: Alert, Oriented X3, Cooperative HEENT: Atraumatic, PERRLA Neck: Supple, No JVD, No Thyromegaly Lungs: Clear to Auscultation, Normal Air Movement Heart: Regular Rate, Normal S1, Normal S2, No Murmurs Abdomen: Normal Bowel Sounds, Soft, No Tenderness, No Hepatosplenomegaly, No Masses Extremities: No Clubbing, No Cyanosis, No Edema, Normal Pulses, No Tenderness/Swelling Skin: No Rashes, No Breakdown, No Significant Lesion Neuro: Normal Gait, Normal Speech, Strength at 5/5 X4 Ext, Normal Tone, Sensation Intact Psych/Mental Status: Mental Status NL, Mood NL A/P-Cardiology Admission Diagnosis Non-ST elevation myocardial infarction Coronary artery disease Hypertension Hyperlipidemia Diabetes mellitus Assessment/Plan Chest pain, non-ST elevation myocardial infarction. Coronary artery disease, cardiac catheterization and stenting was done. Continue to have chest pain, adding Imdur 30 mg daily. Coronary artery disease, cardiac catheterization done on October 07, 2021: 1. Multisegment stenosis in the LAD with severe stenosis proximally successful deployment of dayanna point stent 3 x 18 mm expanded to 3.5 mm with excellent results, distal LAD has severe stenosis successful deployment of 2.5 x 15 mm with expansion to 2.7 mm. Mid LAD has moderate lesion which will be treated conservatively 2. Dominant right coronary artery with mild to moderate disease nonobstructive disease, mild disease in the LAD 3. Normal left ventricular size and systolic function estimate ejection fraction 60% Patient was started on aspirin and Brilinta. Did with coupon for Brilinta. Educated about compliance with medication. Hypertension, continue to monitor blood pressure as an outpatient Hyperlipidemia, lipid profile showed triglycerides 682, total cholesterol 234 and LDL 111. Patient reported that she has been on fish oil. Started on fenofibrate. Educated on compliance. Diabetes mellitus, maintained on insulin, adding Jardiance and evaluate tolerance and response Obesity, BMI 41, we discussed weight loss and exercise History of breast cancer with bilateral mastectomy, did not require radiation or chemotherapy History of colon cancer, history of partial sigmoidectomy required chemotherapy and has been in remission Strong family history of heart disease Witnessed multiple episodes of sleep apnea while asleep by her , high suspicion of obstructive sleep apnea, consider sleep study as an outpatient JESSICA MESSER MD October 08, 2021 09:38
[2021-10-08] MEDS ORDERED: ISOS30TA82 PO (10:02)
[2021-10-08] MEDS ORDERED: INSU100I10 SQ (10:02)
[2021-10-08] MEDS ORDERED: PANT40TA52 PO (10:02)
[2021-10-08] MEDS ORDERED: FENO134C21 PO (10:02)
[2021-10-08] MEDS ORDERED: ASPI-1238 PO (10:02)
[2021-10-08] MEDS ORDERED: TICA90TA PO (10:02)
[2021-10-08] MEDS ORDERED: INSU100I23 SQ (10:02)
--- NOTE | 2021-10-08 10:11 | Discharge Summary ---
Diagnosis/Chief Complaint Date of Admission October 07, 2021 at 03:10 Date of Discharge Discharge Date: October 08, 2021 Admission Diagnosis NSTEMI Primary Care No,Local Physician Discharge Summary Discharge Physical Exam Allergies: Uncoded Allergies: MYCINS (Adverse Reaction, Unknown, 10/07/21) Vitals & I&Os Vital Signs Date Time Temp Pulse Resp B/P (MAP) Pulse Ox O2 Delivery O2 Flow Rate FiO2 10/08/21 09:00 93 Room Air 10/08/21 08:00 36.4 10/08/21 08:00 62 16 138/74 (95) General Appearance: No Apparent Distress, WD/WN, Obese Respiratory: Lungs Clear, No Respiratory Distress Cardiovascular: Regular Rate, Rhythm, No Murmur Neurologic/Psychiatric: Alert, Oriented x3 Hospital Course Patient was admitted to the hospital secondary to chest pain with elevated troponin. Her troponin was trended and continued to rise. Cardiology was consulted and she was taken to cardiac cath where she was found to have disease in the LAD requiring 2 stents. She did well post procedurally and was able to be discharged home in stable and improved condition. Due to her heart disease Jardiance was recommended but she declined due to side effects. She did need refills of her insulin and these were sent along with her dual antiplatelet therapy. She has follow-up with Dr. Aranda in 2 weeks. She was given a list of local providers that she is new to [facility] to arrange follow-up with her primary care provider. Labs (last 24 hrs) Laboratory Tests 10/07/21 12:09: Glucometer 234H 10/07/21 15:23: Glucometer 207H 10/07/21 18:16: Glucometer 192H 10/07/21 22:11: Glucometer 224H 10/08/21 04:45: 10/08/21 05:38: Glucometer 286H Patient resulted labs reviewed. Pending Labs Laboratory Tests 10/08/21 04:45: Mean Blood Glucose [Pending], Hemoglobin A1c [Pending] 10/08/21 05:38: Glucometer 286 Imaging: Reviewed Imaging Report Discussion & Recommendations Discharge Planning: >30 minutes discharge planning Discharge Home Medications: Active Scripts Active Pantoprazole Sodium 40 Mg Tablet. 40 Mg PO DAILY Aspirin EC (Aspirin) 81 Mg Tablet. 81 Mg PO DAILY Isosorbide Mononitrate ER (Isosorbide Mononitrate) 30 Mg Tab.er.24h 30 Mg PO DAILY Fenofibrate (Fenofibrate,Micronized) 134 Mg Capsule 134 Mg PO HS Brilinta (Ticagrelor) 90 Mg Tablet 90 Mg PO BID Lantus Solostar (Insulin Glargine,Hum.rec.anlog) 100 Unit/Ml (3 Ml) Insuln.pen 56 Units SQ HS Humalog Kwikpen (Insulin Lispro) 100 Unit/Ml Insuln.pen 0 SQ TID 15-50 UNITS TID--HOME SLIDING SCALE Reported Hydrochlorothiazide 25 Mg Tablet 25 Mg PO HS Lisinopril 20 Mg Tablet 20 Mg PO HS Instructions to patient/family Please see electronic discharge instructions given to patient. Clinical Quality Measures AMI/AHF: ASA po Prior to arrival: ANITRA Botello MD October 08, 2021 10:11
== END 2021-10-08 10:55 | disposition home or self-care (01) ==
LOC: ER 01:49 → INTOOBSV 03:10 → EDLOC 03:10 → CSD 03:10
PROVIDERS: ADMIT Family Medicine; ATTEND Family Medicine
DX: I21.4 Non-ST elevation (NSTEMI) myocardial infarction (principal); E11.65 Type 2 diabetes mellitus with hyperglycemia; Z79.4 Long term (current) use of insulin; I10 Essential (primary) hypertension; E78.5 Hyperlipidemia, unspecified; E78.00 Pure hypercholesterolemia, unspecified; E66.9 Obesity, unspecified; G47.30 Sleep apnea, unspecified; Z20.822 Contact with and (suspected) exposure to COVID-19; Z68.41 Body mass index [BMI] 40.0-44.9, adult; E78.1 Pure hyperglyceridemia; Z82.49 Family history of ischemic heart disease and other diseases of the circulatory system; Z85.038 Personal history of other malignant neoplasm of large intestine; Z85.3 Personal history of malignant neoplasm of breast; Z90.13 Acquired absence of bilateral breasts and nipples; Z90.49 Acquired absence of other specified parts of digestive tract; Z28.310 Unvaccinated for COVID-19; Z28.1 Immunization not carried out because of patient decision for reasons of belief or group pressure; Z28.39 Other underimmunization status
CPT/HCPCS: 71045; 80048; 80053; 80061; 80306; 82010; 82150; 82550; 82553; 82947 ×2; 83036; 83690; 83735; 83874; 83880; 84484; 85025; 85379; 85610; 85730; 87636; 93005 ×2; 93041; 93306; 93458; 96372 ×2; 96374; 99284; C1725 ×2; C1769; C1874 ×2; C1887; C1894; C9600; 36415; 96361